=== PATIENT | female | born 1945 | race Caucasian/White ===

== ENCOUNTER 2017-10-28 12:02 | Day surgery (SDC) | payer MEDICARE, MEDICAID ==
[~2017-10-28] VITALS: Ht 160 cm; Wt 85.0 kg
[2017-10-28] MEDS ORDERED: SODIUM CHLORIDE 0.9% 1,000 ML IV ONE (12:48)
[2017-10-28 12:49] VITALS: BP 85/49
[2017-10-28] MEDS ORDERED: PLEASE ENTER ALLERGIES MC SCH (13:00)
[2017-10-28] MEDS ORDERED: DIPHENHYDRAMINE 50 MG/ML, 1ML IVPush ONE (13:00)
[2017-10-28] MEDS ORDERED: PLEASE ENTER HEIGHT AND WEIGHT MC SCH (13:00)
[2017-10-28] MEDS ORDERED: methylPREDNISolone SOD SUCC 125 MG/2 ML IVPush ONE (13:00)
[2017-10-28 13:25] LABS: BASOPHILS # (AUTO) 0.06 x10^3/uL (0-0.1); BASOPHILS % (AUTO) 1 % (0-1); EOSINOPHILS % (AUTO) 5 % (1-7); LYMPHOCYTES # (AUTO) 1.71 x10^3/uL (1-3.4); LYMPHOCYTES % (AUTO) 15 % (22-44); MD NO; MEAN CORPUSCULAR HEMOGLOBIN 29.8 pg (27.0-34.8); MEAN CORPUSCULAR HGB CONC 33.1 g/dL (32.4-35.8); MEAN CORPUSCULAR VOLUME 90.1 fL (80-100); MEAN PLATELET VOLUME 11.5 fL (7.4-10.4); MONOCYTES # (AUTO) 0.86 x10^3/uL (0.2-0.8); MONOCYTES % (AUTO) 8 % (2-9); NEUTROPHILS # (AUTO) 7.97 x10^3/uL (1.8-6.8); NEUTROPHILS % (AUTO) 72 % (42-75); PLATELET COUNT 222 x10^3/uL (130-400); RED BLOOD COUNT 4.69 x10^6/uL (3.82-5.3); RED CELL DISTRIBUTION WIDTH 16.5 % (9.6-15.2)
[2017-10-28 13:31] LABS: INTERNATIONAL NORMALIZED RATIO 1.02 (0.93-1.1); PROTHROMBIN TIME 10.5 Seconds (9.6-11.5)
[2017-10-28 13:34] LABS: ANION GAP 5 mmol/L (5-15); CALCIUM 9.4 mg/dL (8.5-10.1); CHLORIDE 106 mmol/L (98-107); CREATININE 1.88 mg/dL (0.55-1.02)
[2017-10-28] MEDS ORDERED: DIGO125T PO (13:34)
[2017-10-28] MEDS ORDERED: NAPR220C2 PO (13:34)
[2017-10-28] MEDS ORDERED: LISI30TA4 PO (13:34)
[2017-10-28] MEDS ORDERED: POTA20TA14 PO (13:34)
[2017-10-28] MEDS ORDERED: METF500T5 PO (13:34)
[2017-10-28] MEDS ORDERED: BUDE0.5A INH (13:34)
[2017-10-28] MEDS ORDERED: DIAZ5TAB4 PO (13:34)
[2017-10-28] MEDS ORDERED: AMLO10TA2 PO (13:34)
[2017-10-28] MEDS ORDERED: MODA200T2 PO (13:34)
[2017-10-28] MEDS ORDERED: HYDR12.58 PO (13:34)
[2017-10-28] MEDS ORDERED: ACET650S12 PR (13:34)
[2017-10-28] MEDS ORDERED: METO25TA35 PO (13:34)
[2017-10-28] MEDS ORDERED: FURO-92 PO (13:34)
[2017-10-28] MEDS ORDERED: ARFO15VI NEB (13:34)
[2017-10-28] MEDS ORDERED: ALBU2.5V NEB (13:34)
[2017-10-28] MEDS ORDERED: ALBU8.5H8 INH (13:34)
[2017-10-28] MEDS ORDERED: ASPI-650 PO (13:34)
[2017-10-28] MEDS ORDERED: FLUO40CA2 PO (13:34)
[2017-10-28] MEDS ORDERED: PANT40TA3 PO (13:34)
[2017-10-28] MEDS ORDERED: DIPHENHYDRAMINE 50 MG/ML, 1ML ONE (14:52)
[2017-10-28] MEDS ORDERED: FENTANYL PF 100 MCG/2ML ONE (14:52)
[2017-10-28] MEDS ORDERED: LIDOCAINE 2%, 2ML ONE (14:53)
[2017-10-28] MEDS ORDERED: HEPARIN 1,000 UNITS/ML, 10ML ONE (14:53)
[2017-10-28] MEDS ORDERED: methylPREDNISolone SOD SUCC 125 MG/2 ML ONE (14:53)
[2017-10-28] MEDS ORDERED: VERAPAMIL 2.5 MG/ML, 2ML ONE (14:53)
[2017-10-28] MEDS ORDERED: MIDAZOLAM 1 MG/ML, 5ML ONE (14:59)
[2017-10-28] MEDS ORDERED: ADENOSINE IV PRN (15:30)
[2017-10-28] MEDS ORDERED: SODIUM CHLORIDE 0.9% IV PRN (15:30)
[2017-10-28] MEDS ORDERED: SODIUM CHLORIDE 0.9% 1,000 ML IV SCH (15:59)
== END 2017-10-28 18:42 | disposition home or self-care (01) ==
LOC: CACL 12:02 → 5SO 15:51 → CACL 18:42
PROVIDERS: ATTEND Internal Medicine Cardiovascular Disease
DX: I27.20 Pulmonary hypertension, unspecified (principal); J44.9 Chronic obstructive pulmonary disease, unspecified; E11.9 Type 2 diabetes mellitus without complications; Z88.8 Allergy status to other drugs, medicaments and biological substances; Z72.89 Other problems related to lifestyle
CPT/HCPCS: 36415; 80048; 85025; 85610; 93460; 93463; 99156; 99157; C1769; C1894; J1200; J1644; J2250; J2930; J3010; J3490; Q9967

== ENCOUNTER → 2018-03-03 | Outpatient (CLI) | payer MEDICARE, MEDICAID ==
[~2018-03-03] MED LIST: ACET650S12 PR; ALBU2.5V NEB; ALBU8.5H8 INH; AMLO10TA6 PO; ARFO15VI NEB; ASPI-650 PO; BUDE0.5A INH; DIAZ5TAB4 PO; DIGO125T PO; FLUO40CA2 PO; FURO-92 PO; HYDR12.58 PO; LISI30TA4 PO; METF500T17 PO; METO25TA35 PO; MODA200T2 PO; NAPR220C2 PO; PANT40TA3 PO; POTA20TA14 PO
== END | disposition home or self-care (01) ==
LOC: CARD 12:06
PROVIDERS: ATTEND Internal Medicine Cardiovascular Disease
DX: I27.29 Other secondary pulmonary hypertension (principal); R06.02 Shortness of breath
CPT/HCPCS: 94060; 94726; 94729